=== PATIENT | female | born 1990 | race Caucasian/White ===

== ENCOUNTER 2017-05-12 14:45 | Inpatient (IN) | payer OTHER ==
[~2017-05-12] VITALS: Ht 152.4 cm; Wt 70.3 kg
[2017-05-12] MEDS ORDERED: LR 1,000 ML IV SCH (15:21)
[2017-05-12] MEDS ORDERED: DINOPROSTONE 10 MG SUPP VG ONE (15:30)
[2017-05-12] MEDS ORDERED: TERBUTALINE SULFATE 1 MG/ML VIAL SUBCUT ONE (15:30)
[2017-05-12 16:05] LABS: BASOPHILS % (AUTO) 0.2 % (0.0-2.0); EOSINOPHILS # (AUTO) 0.2 K/uL (0.0-0.4); EOSINOPHILS % (AUTO) 2.5 % (0.0-4.0); HEMATOCRIT 35.4 % (36-48); HEMOGLOBIN 11.5 g/dL (12.0-16.0); LYMPHOCYTES # (AUTO) 1.4 K/uL (1.0-5.5); LYMPHOCYTES % (AUTO) 16.2 % (20.5-51.5); MEAN CORPUSCULAR HEMOGLOBIN 30 pg (27-31); MEAN CORPUSCULAR HGB CONC 32 % (32-36); MEAN CORPUSCULAR VOLUME 92 fL (79.0-98.0); MONOCYTES # (AUTO) 0.6 K/uL (0.0-1.0); NEUTROPHILS # (AUTO) 6.5 K/uL (1.8-7.7); NEUTROPHILS % (AUTO) 74.1 % (40.0-70.0); PLATELET COUNT (AUTO) 261 K/uL (130-430); RED BLOOD CELL COUNT(AUTO) 3.85 MIL/uL (4.2-6.2); RED CELL DISTRIBUTION WIDTH 14.7 % (9.0-15.0); WHITE BLOOD COUNT (AUTO) 8.7 K/uL (4.8-10.8)
[2017-05-12] MEDS: DIPHENHYDRAMINE HCL 50 MG CAPSULE PO PRN ×2 (16:06→22:39)
[2017-05-12 16:33] LABS: CALCIUM 9.2 mg/dL (8.4-11.0)
[2017-05-12 17:55] LABS: CREATININE 0.5 mg/dL (0.55-1.30); POTASSIUM 3.9 mmol/L (3.5-5.1)
[2017-05-12 17:56] LABS: ALBUMIN 2.7 g/dL (3.4-4.8); TOTAL BILIRUBIN 0.2 mg/dL (0.0-1.0)
[2017-05-13] MEDS: NALBUPHINE HCL 10 MG/ML AMP IVP PRN ×2 (00:27→08:33)
[2017-05-13] MEDS: DIPHENHYDRAMINE HCL 50 MG CAPSULE PO PRN (04:29)
[2017-05-13] MEDS: OXYTOCIN/NORMAL SALINE 1,000 ML IV SCH ×2 (07:11→20:38)
[2017-05-13 09:28] VITALS: BP_SYST 124
[2017-05-13] MEDS: DIPHENHYDRAMINE INJ 50 MG/ML VIAL IVP PRN ×2 (11:01→21:58)
[2017-05-13] MEDS ORDERED: FENT2mCg/mL-ROPIVA0.2%/NS EPID 150 ML EP ONE (17:41)
[2017-05-13] MEDS ORDERED: LR 500 ML IV ONE (18:31)
[2017-05-13] MEDS ORDERED: ePHEDrine sulfate 50 MG/ML VIAL IVP PRN (18:45)
[2017-05-13] MEDS ORDERED: FENT2mCg/mL-ROPIVA0.2%/NS EPID 150 ML EP SCH (18:45)
[2017-05-13] MEDS ORDERED: CLOBETASOL PROPIONATE 0.05%, 60 GM CREAM TP SCH (21:00)
[2017-05-14] MEDS: DIPHENHYDRAMINE INJ 50 MG/ML VIAL IVP PRN (05:29)
[2017-05-14] MEDS ORDERED: AMPICILLIN SODIUM 2 GM in NS 100 ML IV ONE (07:30)
[2017-05-14] MEDS ORDERED: ACETAMINOPHEN 325 MG TABLET PO PRN ×2 (07:30→07:45)
[2017-05-14] MEDS ORDERED: GENTAMICIN 80 mg/100 mL NS 100 ML IV ONE (07:30)
[2017-05-14] MEDS ORDERED: CLINDAMYCIN 900 mg/50mL D5W 50 ML IV ONE (08:00)
[2017-05-14] MEDS ORDERED: LR 1,000 ML IV SCH ×2 (10:06→10:13)
[2017-05-14] MEDS ORDERED: OXYTOCIN/NORMAL SALINE 1,000 ML IV ONE (10:13)
[2017-05-14] MEDS ORDERED: BISACODYL 10 MG/SUPPOSITORY RC PRN (10:15)
[2017-05-14] MEDS ORDERED: ONDANSETRON HCL 4 MG/2 ML VIAL IVP PRN (10:15)
[2017-05-14] MEDS ORDERED: MORPHINE SULFATE 10MG/10ML PF AMP EP SCH (10:15)
[2017-05-14] MEDS ORDERED: MEASLES,MUMPS&RUBELLA VACC/PF 12500 UNIT/0.5 ML VIAL SUBQ PRN (10:15)
[2017-05-14] MEDS ORDERED: DEXAMETHASONE SOD PHOSPHATE 4 MG/ML VIAL IVP ONE (10:15)
[2017-05-14] MEDS ORDERED: DIPHENHYDRAMINE INJ 50 MG/ML VIAL IM PRN (10:15)
[2017-05-14] MEDS ORDERED: NALOXONE HCL 0.4 MG/ML AMP (NARCAN) IVP PRN (10:15)
[2017-05-14] MEDS ORDERED: KETOROLAC TROMETHAMINE 60 MG/2 ML VIAL IM PRN (10:15)
[2017-05-14] MEDS ORDERED: METOCLOPRAMIDE HCL 10 MG/2 ML VIAL IVP PRN (10:15)
[2017-05-14] MEDS ORDERED: LANOLIN 7 GM OINT. TP PRN (10:15)
[2017-05-14] MEDS ORDERED: RHO(D) IMMUNE GLOBULIN/MALTOSE 1500 UNITS/1.3 ML (WINHRO) IM PRN (10:15)
[2017-05-14] MEDS ORDERED: MORPHINE 4 MG/ML INJ. SYRINGE IVP PRN ×3 (10:15)
[2017-05-14] MEDS ORDERED: OXYCODONE/ACETAMINOPHEN 5-325 TABLET PO PRN ×2 (10:15)
[2017-05-14] MEDS ORDERED: PROMETHAZINE HCL 50 MG/ML AMP IM ONE (10:15)
[2017-05-14] MEDS ORDERED: ANUSOL 1 EA SUPP.RECT (PREPARATION H) RC PRN (10:15)
[2017-05-14] MEDS ORDERED: PROMETHAZINE HCL 25 MG/ML AMP ONE (10:34)
[2017-05-14] MEDS ORDERED: DEXAMETHASONE SOD PHOSPHATE 4 MG/ML VIAL ONE (10:34)
[2017-05-14 10:56] VITALS: BP_SYST 116
[2017-05-14] MEDS ORDERED: [UNRECOGNIZED DRUG - OTHER] EP ONE (12:49)
[2017-05-14] MEDS: CEFAZOLIN 1 GM IVPB PREMIX 50 ML IV SCH ×2 (15:11→20:30)
[2017-05-14] MEDS ORDERED: TEMAZEPAM 15 MG CAPSULE PO PRN (21:00)
[2017-05-15] MEDS: CEFAZOLIN 1 GM IVPB PREMIX 50 ML IV SCH ×2 (03:30→09:06)
[2017-05-15] MEDS: IBUPROFEN 800 MG TABLET PO PRN ×3 (05:46→23:37)
[2017-05-15 07:14] LABS: HEMATOCRIT 26.8 % (36-48); HEMOGLOBIN 8.8 g/dL (12.0-16.0)
[2017-05-15] MEDS: DOCUSATE SODIUM 100 MG CAPSULE PO PRN (17:58)
[2017-05-15] MEDS: SENNOSIDES/DOCUSATE SODIUM 1 TAB TABLET(SENOKOT-S) PO PRN (17:58)
[2017-05-15] MEDS: SIMETHICONE 80 MG TAB.CHEW PO PRN (17:59)
[2017-05-16] MEDS: IBUPROFEN 800 MG TABLET PO PRN ×4 (05:38→23:53)
[2017-05-16] MEDS: SIMETHICONE 80 MG TAB.CHEW PO PRN (13:29)
[2017-05-16] MEDS: DOCUSATE SODIUM 100 MG CAPSULE PO PRN (13:29)
[2017-05-16] MEDS ORDERED: IBUPROFEN 800 MG TABLET ONE (23:57)
[2017-05-17] MEDS: IBUPROFEN 800 MG TABLET PO PRN ×4 (06:00→23:56)
[2017-05-17] MEDS ORDERED: IBUPROFEN 800 MG TABLET ONE (06:00)
[2017-05-17] MEDS ORDERED: DIPHENHYDRAMINE HCL 50 MG CAPSULE PO PRN (16:45)
[2017-05-17] MEDS ORDERED: DIPHENHYDRAMINE HCL 50 MG CAPSULE ONE (16:50)
[2017-05-18] MEDS: IBUPROFEN 800 MG TABLET PO PRN ×2 (06:02→12:42)
[2017-05-18] MEDS ORDERED: KETAMINE HCL 500 MG/10 ML VIAL IVP ONE (08:45)
[2017-05-18] MEDS ORDERED: LR 1,000 ML IV.SOLN IV ONE (08:45)
[2017-05-18] MEDS ORDERED: OXYTOCIN 10 UNIT/ML VIAL IV ONE (08:45)
[2017-05-18] MEDS ORDERED: LIDOCAINE MPF 2% 5mL VIAL INJ ONE (08:45)
[2017-05-18] MEDS ORDERED: NS 1000 ML BAG IV ONE (08:45)
[2017-05-18] MEDS ORDERED: ONDANSETRON HCL 4 MG/2 ML VIAL IVP ONE (08:45)
[2017-05-18] MEDS ORDERED: MIDAZOLAM HCL 5 MG/5 ML VIAL IVP ONE (08:45)
[2017-05-18] MEDS: DOCUSATE SODIUM 100 MG CAPSULE PO PRN (09:38)
[2017-05-18] MEDS: SENNOSIDES/DOCUSATE SODIUM 1 TAB TABLET(SENOKOT-S) PO PRN (09:39)
[2017-05-18] MEDS: SIMETHICONE 80 MG TAB.CHEW PO PRN (09:39)
== END 2017-05-18 15:50 | disposition home or self-care (01) | DRG 765 ==
LOC: SPU 14:45
PROVIDERS: ADMIT Obstetrics & Gynecology; ATTEND Obstetrics & Gynecology
PROC: 3E0R3CZ (ICD-10-PCS; 2017-05-13)
PROC: 00HU33Z Insertion of Infusion Device into Spinal Canal, Percutaneous Approach (ICD-10-PCS; 2017-05-13)
PROC: 3E0134Z Introduction of Serum, Toxoid and Vaccine into Subcutaneous Tissue, Percutaneous Approach (ICD-10-PCS; 2017-05-14)
PROC: 10D00Z1 Extraction of Products of Conception, Low, Open Approach (ICD-10-PCS; principal; 2017-05-14 10:00)
DX: O26.62 Liver and biliary tract disorders in childbirth (principal); O41.1230 Chorioamnionitis, third trimester, not applicable or unspecified; K83.1 Obstruction of bile duct; O75.2 Pyrexia during labor, not elsewhere classified; O76 Abnormality in fetal heart rate and rhythm complicating labor and delivery; O26.86 Pruritic urticarial papules and plaques of pregnancy (PUPPP); O62.2 Other uterine inertia; J45.909 Unspecified asthma, uncomplicated; Z3A.39 39 weeks gestation of pregnancy; O69.81X0 Labor and delivery complicated by cord around neck, without compression, not applicable or unspecified; O99.52 Diseases of the respiratory system complicating childbirth; Z37.0 Single live birth; Z23 Encounter for immunization
CPT/HCPCS: 36415; 80053; 85018-TC; 85025; 86592; 86886; 86900; 86901; 94760; C1726; J0290; J0690; J1100; J1200; J1580; J1885; J2001; J2250; J2300; J2405; J2550; J2590; J3010; J3490; J7030; J7120; Q0163

== ENCOUNTER 2022-09-19 06:00 | Inpatient (IN) | payer OTHER ==
[~2022-09-19] VITALS: Ht 154.9 cm; Wt 69.9 kg
[2022-09-19] MEDS ORDERED: LR 1,000 ML IV SCH ×2 (06:30→09:00)
[2022-09-19] MEDS ORDERED: CEFAZOLIN 2 GM IVPB PREMIX 50 ML IV ONE (06:30)
[2022-09-19 07:11] LABS: BASOPHILS % (AUTO) 0.2 % (0.0-2.0); EOSINOPHILS # (AUTO) 0.1 K/uL (0.0-0.4); EOSINOPHILS % (AUTO) 0.5 % (0.0-4.0); HEMATOCRIT 26.7 % (36-48); LYMPHOCYTES # (AUTO) 2.1 K/uL (1.0-5.5); LYMPHOCYTES % (AUTO) 22.2 % (20.5-51.5); MEAN CORPUSCULAR HEMOGLOBIN 27 pg (27-31); MEAN CORPUSCULAR HGB CONC 34 % (32-36); MEAN CORPUSCULAR VOLUME 82 fL (79.0-98.0); MONOCYTES # (AUTO) 0.7 K/uL (0.0-1.0); MONOCYTES % (AUTO) 7.5 % (1.7-9.3); NEUTROPHILS # (AUTO) 6.5 K/uL (1.8-7.7); NEUTROPHILS % (AUTO) 69.6 % (40.0-70.0); PLATELET COUNT (AUTO) 261 K/uL (130-430); RED BLOOD CELL COUNT(AUTO) 3.27 MIL/uL (4.2-6.2); RED CELL DISTRIBUTION WIDTH 15.8 % (9.0-15.0); WHITE BLOOD COUNT (AUTO) 9.3 K/uL (4.8-10.8)
[2022-09-19 07:25] LABS: BILIRUBIN,URINE NEGATIVE (NEGATIVE); BLOOD, URINE NEGATIVE (NEGATIVE); CLARITY/URINE CLEAR (CLEAR); COLOR,URINE YELLOW (YELLOW); GLUCOSE,URINE NEGATIVE (NEGATIVE); KETONES,URINE TRACE (NEGATIVE); LEUKOCYTE ESTERASE ,URINE NEGATIVE (NEGATIVE); NITRITE, URINE NEGATIVE (NEGATIVE); PH,URINE 6.5 (5.0-8.0); PROTEIN URINE TRACE (NEGATIVE); UROBILINOGEN,URINE 0.2 (0.2-1.0)
[2022-09-19] MEDS ORDERED: MIDAZOLAM HCL 2 MG/2 ML VIAL (VERSED) ONE (08:02)
[2022-09-19] MEDS ORDERED: ePHEDrine sulfate 50 MG/ML VIAL ONE (08:02)
[2022-09-19] MEDS ORDERED: ONDANSETRON HCL 4 MG/2 ML VIAL ONE (08:02)
[2022-09-19] MEDS ORDERED: ceFAZolin SODIUM 2 GM VIAL ONE (08:02)
[2022-09-19] MEDS ORDERED: OXYTOCIN 10 UNIT/ML VIAL ONE (08:02)
[2022-09-19] MEDS ORDERED: DEXAMETHASONE SOD PHOSPHATE 4 MG/ML VIAL ONE (08:02)
[2022-09-19] MEDS ORDERED: ANUSOL 1 EA SUPP.RECT (PREPARATION H) RC PRN (09:00)
[2022-09-19] MEDS ORDERED: IBUPROFEN 600 MG TABLET PO PRN (09:00)
[2022-09-19] MEDS ORDERED: METOCLOPRAMIDE HCL 10 MG/2 ML VIAL IVP PRN ×3 (09:00→14:00)
[2022-09-19] MEDS ORDERED: LANOLIN 7 GM OINT. TP PRN (09:00)
[2022-09-19] MEDS ORDERED: MEASLES,MUMPS&RUBELLA VACC/PF 12500 UNIT/0.5 ML VIAL SUBQ PRN (09:00)
[2022-09-19] MEDS ORDERED: TEMAZEPAM 15 MG CAPSULE PO PRN (09:00)
[2022-09-19] MEDS ORDERED: DIPHTH,PERTUSS(ACELL),TET VAC 0.5 ML VIAL (Tdap) I.M. PRN (09:00)
[2022-09-19] MEDS ORDERED: NALOXONE HCL 0.4 MG/ML AMP (NARCAN) IVP PRN ×4 (09:00→14:00)
[2022-09-19] MEDS ORDERED: HYDROmorphone 1 MG/ML INJ. CARTRIDGE IVP PRN ×2 (09:00→14:00)
[2022-09-19] MEDS ORDERED: ONDANSETRON HCL 4 MG/2 ML VIAL IVP PRN ×3 (09:00→14:00)
[2022-09-19] MEDS ORDERED: RHO(D) IMMUNE GLOBULIN/MALTOSE 1500 UNITS/1.3 ML (WINHRO) IM PRN (09:00)
[2022-09-19] MEDS ORDERED: KETOROLAC TROMETHAMINE 30 MG VIAL IVP PRN (09:00)
[2022-09-19] MEDS ORDERED: HYDROcodone/ACETAMIN 5-325 MG TAB (NORCO/ VICODIN) PO PRN (09:00)
[2022-09-19] MEDS ORDERED: OXYCODONE/ACETAMINOPHEN 5-325 TABLET PO PRN (09:00)
[2022-09-19] MEDS ORDERED: BISACODYL 10 MG/SUPPOSITORY RC PRN (09:00)
[2022-09-19] MEDS ORDERED: DIPHENHYDRAMINE INJ 50 MG/ML VIAL IM PRN ×2 (09:00→14:00)
[2022-09-19] MEDS ORDERED: MORPHINE SULFATE 10MG/10ML PF AMP SP SCH (09:00)
[2022-09-19] MEDS: CEFAZOLIN 1 GM IVPB PREMIX 50 ML IV SCH ×2 (12:02→18:00)
[2022-09-19] MEDS ORDERED: DIPHENHYDRAMINE INJ 50 MG/ML VIAL IVP ONE (12:45)
[2022-09-19] MEDS ORDERED: KETOROLAC TROMETHAMINE 60 MG/2 ML VIAL IM ONE (12:45)
[2022-09-19] MEDS ORDERED: KETOROLAC TROMETHAMINE 60 MG/2 ML VIAL IM PRN (14:00)
[2022-09-19] MEDS: OXYTOCIN/0.9 % SODIUM CHLORIDE 1,000 ML IV SCH ×2 (14:13→22:45)
--- NOTE | 2022-09-19 14:23 | NUR ---
URINE DIP SENT TO LAB Addendum: 09/19/22 at 1432 by Nina Tan RN Amended: Links added.
[2022-09-19 14:27] VITALS: BP_SYST 115
[2022-09-19] MEDS: SIMETHICONE 80 MG TAB.CHEW PO PRN ×2 (16:10→23:59)
[2022-09-19] MEDS: KETOROLAC TROMETHAMINE 30 MG VIAL IVP SCH (18:01)
[2022-09-20] MEDS: CEFAZOLIN 1 GM IVPB PREMIX 50 ML IV SCH
[2022-09-20] MEDS: KETOROLAC TROMETHAMINE 30 MG VIAL IVP SCH ×2 (06:29)
[2022-09-20 06:57] LABS: BASOPHILS % (AUTO) 0.2 % (0.0-2.0); EOSINOPHILS # (AUTO) 0.1 K/uL (0.0-0.4); EOSINOPHILS % (AUTO) 0.7 % (0.0-4.0); HEMATOCRIT 26.2 % (36-48); HEMOGLOBIN 8.7 g/dL (12.0-16.0); LYMPHOCYTES # (AUTO) 2.6 K/uL (1.0-5.5); LYMPHOCYTES % (AUTO) 19.6 % (20.5-51.5); MEAN CORPUSCULAR HEMOGLOBIN 27 pg (27-31); MEAN CORPUSCULAR HGB CONC 33 % (32-36); MEAN CORPUSCULAR VOLUME 82 fL (79.0-98.0); MONOCYTES # (AUTO) 0.8 K/uL (0.0-1.0); MONOCYTES % (AUTO) 6.1 % (1.7-9.3); NEUTROPHILS # (AUTO) 9.8 K/uL (1.8-7.7); NEUTROPHILS % (AUTO) 73.4 % (40.0-70.0); PLATELET COUNT (AUTO) 261 K/uL (130-430); RED CELL DISTRIBUTION WIDTH 15.4 % (9.0-15.0); WHITE BLOOD COUNT (AUTO) 13.4 K/uL (4.8-10.8)
[2022-09-20] MEDS: IBUPROFEN 600 MG TABLET PO SCH ×3 (12:42→23:55)
[2022-09-20] MEDS: SIMETHICONE 80 MG TAB.CHEW PO PRN (18:18)
[2022-09-20] MEDS: OXYCODONE/ACETAMINOPHEN *10*mg/325 mg TABLET PO PRN (20:00)
[2022-09-20] MEDS: DOCUSATE SODIUM 100 MG CAPSULE PO SCH (20:02)
[2022-09-20] MEDS: SENNOSIDES/DOCUSATE SODIUM 1 TAB TABLET(SENOKOT-S) PO SCH (20:12)
[2022-09-20 20:32] VITALS: BP_SYST 114
[2022-09-21] MEDS: OXYCODONE/ACETAMINOPHEN *10*mg/325 mg TABLET PO PRN ×4 (01:00→22:04)
[2022-09-21] MEDS: SIMETHICONE 80 MG TAB.CHEW PO PRN ×2 (01:01→09:42)
[2022-09-21] MEDS: IBUPROFEN 600 MG TABLET PO SCH ×4 (06:27→23:42)
[2022-09-21] MEDS: SENNOSIDES/DOCUSATE SODIUM 1 TAB TABLET(SENOKOT-S) PO SCH (20:25)
[2022-09-21] MEDS: DOCUSATE SODIUM 100 MG CAPSULE PO SCH (20:30)
[2022-09-22] MEDS: IBUPROFEN 600 MG TABLET PO SCH ×5 (05:32→23:45)
[2022-09-22] MEDS: DOCUSATE SODIUM 100 MG CAPSULE PO SCH ×2 (09:02→20:41)
[2022-09-22] MEDS ORDERED: MEASLES,MUMPS&RUBELLA VACC/PF 12500 UNIT/0.5 ML VIAL SUBQ PRN (10:15)
[2022-09-22] MEDS: SENNOSIDES/DOCUSATE SODIUM 1 TAB TABLET(SENOKOT-S) PO SCH (20:38)
[2022-09-23] MEDS: IBUPROFEN 600 MG TABLET PO SCH ×2 (05:42→11:37)
[2022-09-23] MEDS: DOCUSATE SODIUM 100 MG CAPSULE PO SCH (09:25)
[2022-09-23] MEDS: OXYCODONE/ACETAMINOPHEN *10*mg/325 mg TABLET PO PRN (11:38)
== END 2022-09-23 12:40 | disposition home or self-care (01) | DRG 788 ==
LOC: SPU 06:00
PROVIDERS: ADMIT Specialist; ATTEND Specialist
PROC: 10D00Z1 Extraction of Products of Conception, Low, Open Approach (ICD-10-PCS; principal; 2022-09-19 08:02)
DX: O69.81X0 Labor and delivery complicated by cord around neck, without compression, not applicable or unspecified (principal); O34.211 Maternal care for low transverse scar from previous cesarean delivery; Z20.822 Contact with and (suspected) exposure to COVID-19; Z3A.39 39 weeks gestation of pregnancy; Z37.0 Single live birth
CPT/HCPCS: 36415; 81003; 85025; 86592; 86886; 86900; 86901; 94760; J0690; J1100; J1200; J1885; J2405; J2590; J2765; J3465; U0003